=== PATIENT | female | born 1975 | race Caucasian/White ===

== ENCOUNTER 2018-03-31 06:35 | Inpatient (IN) | END 2018-04-05 15:30 | disposition home or self-care (01) | DRG 330 ==

== ENCOUNTER 2018-04-16 03:46 | Inpatient (IN) | END 2018-04-19 16:30 | disposition home or self-care (01) | DRG 389 ==

== ENCOUNTER 2018-04-26 04:58 | Inpatient (IN) | END 2018-04-30 18:45 | disposition home or self-care (01) | DRG 390 ==